=== PATIENT | female | born 1970 | race Caucasian/White ===

== ENCOUNTER → 2016-12-17 | Outpatient (CLI) | payer BC | END | disposition home or self-care (01) | LOC: LAB.O 14:51 | PROVIDERS: ATTEND Internal Medicine | DX: K74.3 Primary biliary cirrhosis (principal) ==

== ENCOUNTER → 2017-06-13 | Outpatient (CLI) | payer BC | END | disposition home or self-care (01) | LOC: LAB.O 13:32 | PROVIDERS: ATTEND Internal Medicine | DX: K74.3 Primary biliary cirrhosis (principal) ==

== ENCOUNTER → 2017-09-22 | Outpatient (CLI) | payer BC | LOC: GMAJS 17:29 | PROVIDERS: ATTEND Physician Assistant | DX: N39.0 Urinary tract infection, site not specified (principal) ==

== ENCOUNTER → 2017-11-28 | Outpatient (CLI) | payer BC ==
--- NOTE | 2017-11-28 16:04 | US ---
EXAM DESCRIPTION: Abdomen,Complete: Ultrasound. 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 TECHNIQUE: Transabdominal scannin-dimensional and Doppler modes. FINDINGS: Gallbladder: Previous cholecystectomy. No fluid in the gallbladder fossa. Common bile duct: 7.3 mm caliber, not abnormal postcholecystectomy. Liver: Increased echogenicity. Right lobe long axis is 12.8 cm. Normal ducts and portal vein size and hepatopedal flow. Smooth capsule. No ascites. Pancreas: Normal size and echogenicity with duct not dilated.. Abdominal aorta: Normal caliber from the proximal segment to the distal bifurcation. IVC: visualized; normal caliber. Spleen normal echogenicity; long axis measurement is 9.8 cm. Right kidney: 11.2 cm long axis. Cortical thickness 1.0 cm with normal echogenicity. Smooth capsule. No hydronephrosis. Left kidney: 9.7 cm long axis. Cortical thickness 1.3 cm with normal echogenicity. No hydronephrosis. IMPRESSION: 1. Hepatic steatosis versus chronic hepatic condition, normal size. Normal ducts and portal vein size and hepatopedal flow. Smooth capsule. No ascites. Minimal dilation of the common bile duct, not necessarily abnormal after cholecystectomy. 2. Normal ultrasound of the pancreas spleen. Normal caliber of the abdominal aorta and IVC. 3. Minimal cortical atrophy with normal echogenicity right kidney. Left kidney smaller than the right kidney which may be due to measurement axis, normal echogenicity. Electronically signed by: Roc Woods MD 11/28/2017 4:03 PM CDT
== END ==
LOC: US 08:04
PROVIDERS: ATTEND Internal Medicine
DX: K74.3 Primary biliary cirrhosis (principal); K76.0 Fatty (change of) liver, not elsewhere classified

== ENCOUNTER → 2017-12-15 | Outpatient (CLI) | payer BC | LOC: LAB.O 12:51 | PROVIDERS: ATTEND Clinical Nurse Specialist Adult Health | DX: K74.3 Primary biliary cirrhosis (principal) ==

== ENCOUNTER → 2018-12-02 | Outpatient (CLI) | payer BC | LOC: LAB.O 09:50 | DX: K74.3 Primary biliary cirrhosis (principal); R94.5 Abnormal results of liver function studies; R74.0 Nonspecific elevation of levels of transaminase and lactic acid dehydrogenase [LDH] ==

== ENCOUNTER → 2018-12-16 | Outpatient (CLI) | payer BC ==
--- NOTE | 2018-12-16 13:23 | MRI ---
CLINICAL HISTORY PROVIDED: PRIMARY BILIARY CIRRHOSIS TECHNIQUE: Multiplanar, multisequence MR images of the abdomen. Images were obtained before and after the use of IV contrast. COMPARISON: November 28, 2017 FINDINGS: The liver is normal in size, shape, contour, signal and morphology. Cholecystectomy. No biliary ductal dilatation or irregularity. The portal vein is patent. The spleen is normal in size. The pancreas and adrenal glands are unremarkable. Symmetric renal parenchymal enhancement. No hydronephrosis. No evidence of bowel obstruction. No adenopathy. No focal fluid collection. Normal caliber abdominal aorta. No focal marrow signal abnormality. IMPRESSION: Normal MRI of the liver. Electronically signed by: Maco Marcial MD 12/16/2018 1:21 PM CDT
== END ==
LOC: MRI 07:59
DX: K74.3 Primary biliary cirrhosis (principal); R74.0 Nonspecific elevation of levels of transaminase and lactic acid dehydrogenase [LDH]; R94.5 Abnormal results of liver function studies; K90.9 Intestinal malabsorption, unspecified

== ENCOUNTER → 2019-07-05 | Outpatient (CLI) | payer BC ==
--- NOTE | 2019-07-06 14:25 | US ---
EXAM DESCRIPTION: Abdomen,Complete: Ultrasound. CLINICAL HISTORY: 49 years FemalePRIMARY BILIARY CIRRHOSIS COMPARISON: None Available. TECHNIQUE: Transabdominal scanning: grayscale and Doppler modes. FINDINGS: Gallbladder: Gallbladder surgically removed. No fluid in the gallbladder fossa. Nontender with transducer pressure. Common bile duct: 6.1 mm normal caliber postcholecystectomy. Liver: Long axis right lobe 14.0 cm. Diffuse increased echogenicity. No focal lesions. Physiologic vascularity and ducts. Smooth capsule with no ascites. Pancreas normal echogenicity: Duct not seen.. Abdominal aorta: Normal caliber from the proximal segment to the distal bifurcation. IVC: visualized; normal caliber. Spleen normal echogenicity; long axis measurement is 9.6 cm. Left kidney: 10.8 cm long axis. Normal cortical thickness and echogenicity. No echogenic stones or hydronephrosis. Right kidney: 9.8 cm long axis. Cortical thickness 12 mm with normal cortical echogenicity. No echogenic stones or hydronephrosis. IMPRESSION: 1. Steatosis of the liver normal size. Physiologic ducts and vascularity. Smooth capsule with no ascites. 2. No fluid in the gallbladder fossa. Nontender during the examination. Physiologic diameter of the common bile duct. 3. Bilateral kidneys with normal echogenicity. Minimal thinning of the right cortex. Otherwise negative. 4. Pancreas is negative. Spleen unremarkable. Normal caliber of the abdominal aorta and IVC. Electronically signed by: Roc Woods MD 07/06/2019 2:24 PM SETTLEMENT PROCESSOR
== END ==
LOC: LAB.O 15:16
DX: K74.3 Primary biliary cirrhosis (principal); R94.5 Abnormal results of liver function studies; R74.0 Nonspecific elevation of levels of transaminase and lactic acid dehydrogenase [LDH]; R53.83 Other fatigue; K76.0 Fatty (change of) liver, not elsewhere classified; N28.9 Disorder of kidney and ureter, unspecified; P96.89 Other specified conditions originating in the perinatal period

== ENCOUNTER → 2019-07-09 | Outpatient (CLI) | payer BC ==
--- NOTE | 2019-07-12 15:59 | MAM ---
EXAM DESCRIPTION: 3D Screening BILATERAL : Digital Mammography. CLINICAL HISTORY: 49 years Female SCREENING . No complaints. No personal history of breast cancer. Remote family history of breast cancer. Menarche age 11. Childbirth age 20.5. Menopause age unknown. No HRT. Lifetime risk of developing breast cancer (Tyrer-Cuzick model)(%): 8.0. COMPARISON: 2-D digital screening bilateral mammography April 2014. TECHNIQUE: Bilateral CC and MLO projection full-field images, digital tomosynthesis mammographic technique. Bilateral digital 2-D full-field MLO images. CAD available for 2-D images. FINDINGS: The breast parenchymal density pattern is: Scattered areas of fibroglandular density. No skin thickening or nipple retraction. No new focal, stellate mass or density, focal asymmetry , and no suspicious microcalcifications bilaterally.Stable mammograms compared to prior study. Taking into account, differences in mammographic technique. IMPRESSION: No suspicious or significant imaging findings. BI-RADS CATEGORY: 1 - NEGATIVE FOLLOW UP: Routine digital bilateral screening, one year interval from June 2019. Written communication explaining the findings and follow-up, will be mailed to the patient and referring health care provider. According to the [employer], yearly mammograms are recommended starting at age 40 and continuing as long as a woman is in good health. Any breast change noted on a breast self-exam should be reported promptly to the patient's healthcare provider. Breast MRI is recommended for women with an approximately 20-25% or greater lifetime risk of breast cancer, including women with a strong family history of breast or ovarian cancer and women who have been treated for Hodgkin's disease. A negative mammographic report should not delay tissue diagnosis in patients with significant clinical history or physical findings. Extremely dense breast tissue limits the sensitivity of digital mammography. Electronically signed by: Roc Woods MD 07/12/2019 3:57 PM INSURANCE LEGAL ASSISTANT
== END ==
LOC: MAMMO 13:30
PROVIDERS: ATTEND Obstetrics & Gynecology
DX: Z12.31 Encounter for screening mammogram for malignant neoplasm of breast (principal)

== ENCOUNTER → 2019-07-30 | Outpatient (CLI) | payer BC ==
--- NOTE | 2019-08-01 13:21 | MRI ---
EXAM DESCRIPTION: Abdomen w/wo Contrast CLINICAL HISTORY: 49 years Female, PRIMARY BILIARY CIRRHOSIS COMPARISON: MRI of the abdomen December 16, 2018. Ultrasound of the abdomen July 05, 2019 TECHNIQUE: Pre and postcontrast multiplanar multisequence magnetic resonance imaging of the liver. FINDINGS: Liver remains normal in size measuring approximately 13 cm mid clavicular line. No significant fat suppression is demonstrated on out of phase imaging. No intrahepatic ductal dilatation is present. There are no aggressive liver lesions. Normal vascular flow voids are present. No abnormal diffusion restriction. There is no abnormal postcontrast enhancement. The capsule of the liver is smooth. The portal vein is normal in size. There is no splenomegaly. Normal cholecystectomy findings. No pancreatic mass or inflammation. No pancreatic ductal dilatation. Bilateral adrenal glands are normal in appearance. No aggressive renal lesions. No obstructive uropathy. No free intraperitoneal fluid or gas is demonstrated. No lymphadenopathy. IMPRESSION: Normal MRI of the liver. Normal cholecystectomy findings. Electronically signed by: Mina Early MD 08/01/2019 1:19 PM DIRECTOR CORPORATE SALES
== END ==
LOC: MRI 09:55
DX: K74.3 Primary biliary cirrhosis (principal); R94.5 Abnormal results of liver function studies; R74.0 Nonspecific elevation of levels of transaminase and lactic acid dehydrogenase [LDH]

== ENCOUNTER → 2019-10-11 | Outpatient (CLI) | payer BC | LOC: GMAE 11:21 | PROVIDERS: ATTEND Family Medicine | DX: Z00.01 Encounter for general adult medical examination with abnormal findings (principal); G62.9 Polyneuropathy, unspecified; R00.2 Palpitations; R53.83 Other fatigue ==

== ENCOUNTER → 2019-10-12 | Outpatient (CLI) | payer BC | LOC: ECHO 10:30 | PROVIDERS: ATTEND Family Medicine | DX: R00.2 Palpitations (principal); I51.7 Cardiomegaly ==

== ENCOUNTER → 2020-01-17 | Outpatient (CLI) | payer BC | LOC: GMAE 10:38 | PROVIDERS: ATTEND Family Medicine | DX: E53.8 Deficiency of other specified B group vitamins (principal); E83.51 Hypocalcemia; Z79.899 Other long term (current) drug therapy ==

== ENCOUNTER → 2020-07-10 | Outpatient (CLI) | payer BC ==
--- NOTE | 2020-07-11 13:38 | MAM ---
EXAM DESCRIPTION: 3D Screening BILATERAL : Digital Mammography. CLINICAL HISTORY: 50 years Female ANNUAL . No complaints. Remote family history of breast cancer. Menarche age. 2. Age 20. Menopause age 49. Currently on HRT. Lifetime risk of developing breast cancer (Tyrer-Cuzick model)(%): 7.9. COMPARISON: Bilateral screening digital breast tomosynthesis June 2019. TECHNIQUE: Bilateral CC and MLO projection full-field images, digital tomosynthesis mammographic technique. Bilateral digital 2-D full-field MLO images. CAD available for 2-D images. FINDINGS: The breast parenchymal density pattern is: Scattered areas of fibroglandular density. Fibroglandular tissues are increasing in density and volume since the prior study. Density with lobulated margins, possibly lymph node, appears to have enlarged, now approximately 1.2 cm diameter, in the middle third of the left breast since the prior study located 4 cm from the nipple at 9:00. Intramammary lymph nodes are seen in the middle and anterior third of the left breast stable since the prior study. Focal asymmetry versus mass density in the middle third of the right breast, same density as surrounding fibroglandular tissues, and with partially well-defined margin, 7.3 mm from the nipple at 6:00. Not as well-seen on the prior study. No skin thickening or nipple retraction IMPRESSION: BI-RADS CATEGORY: 0 - INCOMPLETE- Need additional imaging evaluation. RECOMMENDATIONS: FOLLOW-UP: Recall for additional imaging: Bilateral 2-dimensional and tomosynthesis images of the breasts, full-field in the lateral medial projection. Spot compression with two-dimensional and tomosynthesis images of the region of interest in the middle third of the right breast. Bilateral directed ultrasound to follow.. Written communication concerning the IMPRESSION and Follow-up, will be mailed to the patient and referring health care provider. Electronically signed by: Roc Woods MD 07/11/2020 1:37 PM MAGAZINE DESIGNER
== END ==
LOC: MAMMO 08:52
PROVIDERS: ATTEND Family Medicine
DX: Z12.31 Encounter for screening mammogram for malignant neoplasm of breast (principal)

== ENCOUNTER → 2020-07-31 | Outpatient (CLI) | payer BC ==
--- NOTE | 2020-08-01 15:59 | MAM ---
EXAM DESCRIPTION: 3D Diagnostic, Bilateral (accession [id number]), Breast,Bilateral (accession [id number]): Ultrasound CLINICAL HISTORY: 50 yearsFemaleABNORMAL MAMMO bilateral focal asymmetries. COMPARISON: Bilateral screening digital breast tomosynthesis July 10. TECHNIQUE: Bilateral LM projection full-field images, left breast MLO, CC, and ileum spot compression images: digital tomosynthesis technique. Bilateral 2-D digital full-field images: LM projection. Left breast spot compression 2-D images in multiple projections. CAD available for 2-D images.. Transcutaneous scanning of the bilateral breasts utilizing valdez-scale and Doppler modes. Scanning performed by the blank driller ; observation by Dr. Woods. FINDINGS: The breast parenchymal density pattern is: Scattered areas of fibroglandular density. Focal asymmetry again visualized right breast in the 12:00-6:00 axis approximately 8 cm from the nipple. No abnormal calcifications. Focal asymmetry versus mass density left breast anterior third 4 cm on the nipple at 9:00. No associated microcalcifications. No skin thickening or nipple retraction Ultrasound: Mostly fibroglandular tissue with minimal fatty tissue. Scanning of the right breast middle third, specifically 8 cm from the nipple in the 12:00-6:00 axis. Circumscribed elongated hypoechoic structure with regions of echogenicity measuring 8.6 x 5.8 mm. Not significantly vascular. Wider than tall orientation. No acoustic shadowing. Focal fibroglandular tissue versus lymph node. Scanning anterior third left breast. Mostly fatty tissue with minimal fibroglandular replacement. Specifically scanning 4 cm from the nipple at 9:00. Circumscribed object with the cystic portion. Mixed posterior acoustic features from the cyst. Echogenic and hypoechoic structure abutting this cyst suggestive of a lymph node. Nonvascular. Overall dimension 6.7 x 8.1 mm this cyst approximately 3.3 mm. IMPRESSION: Benign exam. BIRAD CATEGORY: 2 BENIGN FINDINGS. RECOMMENDATIONS: FOLLOW UP: Routine digital bilateral mammographic screening, one year interval from July 2020. Written communication explaining the IMPRESSION and follow-up, will be mailed to the patient and referring health care provider. The FINDINGS and the FOLLOW-UP plan were reviewed in person with the patient after the examination. According to the [employer], yearly mammograms are recommended starting at age 40 and continuing as long as a woman is in good health. Any breast change noted on a breast self-exam should be reported promptly to the patient's healthcare provider. Breast MRI is recommended for women with an approximately 20-25% or greater lifetime risk of breast cancer, including women with a strong family history of breast or ovarian cancer and women who have been treated for Hodgkin's disease. A negative mammographic report should not delay tissue diagnosis in patients with significant clinical history or physical findings. Extremely dense breast tissue limits the sensitivity of digital mammography. Electronically signed by: Roc Woods MD 08/01/2020 3:57 PM [facility]
== END ==
LOC: MAMMO 08:07
PROVIDERS: ATTEND Obstetrics & Gynecology
DX: R92.8 Other abnormal and inconclusive findings on diagnostic imaging of breast (principal)
CPT/HCPCS: 76641; 77066; G0279